=== PATIENT | female | born 1980 | race Hispanic/Latino ===

== ENCOUNTER 2017-07-19 07:37 | Emergency (ER) | payer SELFPAY ==
[2017-07-19 08:08] LABS: #Basophils 0.1 thou/uL (0.0-0.2); #Lymphocytes 1.7 thou/uL (1.20-3.40); #Monocytes 0.5 thou/uL (0.11-0.59); #Neutrophils 3.1 thou/uL (1.40-6.50); %Basophils 1.2 % (0.0-1.0); %Eosinophils 0.5 % (0.0-10.0); %Monocytes 9.1 % (0.0-10.0); Hematocrit 35.5 % (36.0-47.0); Mean Platelet Volume 7.6 fL (7.4-10.4); Red Blood Cell (RBC) Count 4.47 mill/uL (4.20-5.40); White Blood Cell (WBC) Count 5.4 thou/uL (4.8-10.8)
[2017-07-19 08:26] LABS: Anion Gap 8 mmol/L (10-20); BUN (Urea Nitrogen) 8 mg/dL (7.0-18.7); Calc. Creatinine Clearance 0 mL/min (70-130); Calcium 9.2 mg/dL (7.8-10.44); Carbon Dioxide 25 mmol/L (22-29); Chloride 107 mmol/L (98-107); Estimated GFR-MDRD Greater than 90
== END 2017-07-19 09:17 | disposition home or self-care (01) ==
LOC: ERS 07:37
DX: M79.641 Pain in right hand (principal); M79.671 Pain in right foot
CPT/HCPCS: 36415; 80048; 85025; 99283

== ENCOUNTER 2018-05-29 14:26 | Emergency (ER) | payer SELFPAY ==
[~2018-05-29 14:26] MED LIST: ISOVUE-370 76%-LOCM 1 ML ONE
[2018-05-29 15:20] LABS: #Basophils 0.1 thou/uL (0.0-0.2); #Eosinphils 0.1 thou/uL (0.0-0.7); #Lymphocytes 2.4 thou/uL (1.20-3.40); #Monocytes 0.5 thou/uL (0.11-0.59); #Neutrophils 5.7 thou/uL (1.40-6.50); %Basophils 0.8 % (0.0-1.0); %Eosinophils 0.7 % (0.0-10.0); %Lymphocytes 27.3 % (21.0-51.0); %Monocytes 5.3 % (0.0-10.0); %Neutrophils 65.9 % (42.0-75.0); Hemoglobin 12.5 g/dL (12.0-16.0); Mean Corpuscular HGB CONC 34.8 g/dL (32.0-36.0); Mean Corpuscular Hemoglobin 29.9 pg (27.0-31.0); Mean Corpuscular Volume 85.9 fL (78.0-98.0); Mean Platelet Volume 7.2 fL (7.4-10.4); Platelet Count 258 thou/uL (130-400); RBC Distribution Width 12.5 % (11.5-14.5); Red Blood Cell (RBC) Count 4.18 mill/uL (4.20-5.40); White Blood Cell (WBC) Count 8.7 thou/uL (4.8-10.8)
[2018-05-29 15:32] LABS: BHCG - Serum Negative (NEGATIVE); Pregs Control Background? CLEAR/WHITE (CLR/WHITE); Pregs Control Bar Appear? YES (CONTROL BAR)
[2018-05-29 15:37] LABS: ALT (SGPT) 15 U/L (8-55); AST (SGOT) 15 U/L (5-34); Albumin 3.9 g/dL (3.5-5.0); Alkaline Phosphatase 91 U/L (40-150); Anion Gap 11 mmol/L (10-20); BUN (Urea Nitrogen) 11 mg/dL (7.0-18.7); Bilirubin, Total 0.4 mg/dL (0.2-1.2); Calc. Creatinine Clearance 0 mL/min (70-130); Calcium 8.9 mg/dL (7.8-10.44); Carbon Dioxide 25 mmol/L (22-29); Chloride 104 mmol/L (98-107); Estimated GFR-MDRD 83; Globulin 4.1 g/dL (2.4-3.5); Glucose 96 mg/dL (70-105); Potassium 4.1 mmol/L (3.5-5.1); Sodium 136 mmol/L (136-145)
[2018-05-29 15:40] LABS: Bilirubin Negative (Negative); Blood, Urine Small (Negative); Clarity CLEAR (Clear); Glucose, Urine (Dipstick) Negative (Negative); Leukocyte Negative (Negative); Nitrite Negative (Negative); Protein, Urine (Dipstick) Negative (Neg-Trace); Specific Gravity, Urine 1.022 (1.002-1.036)
[2018-05-29 15:47] LABS: Bacteria/HPF 1+ HPF (None Seen); Hyaline Casts/LPF 0-3 HYALINE CAST LPF (0-3 Hyaline); Pathc Cast-AUWi Flag 0.29 (0-2.49)
--- NOTE | 2018-05-29 15:53 | ULT ---
PELVIC ULTRASOUND INCLUDING TRANSABDOMINAL AND TRANSVAGINAL IMAGING: HISTORY: A 38-year-old female with lower abdominal and pelvic pain. FINDINGS: The uterus measures 11 cm in length and 4.4 x 4.8 cm transversely. Endometrium 1.3 cm. Right ovary not seen. Left ovary not seen. There are some nabothian cysts within the cervix. IMPRESSION: Overall unremarkable uterus, endometrium is slightly thickened at 1.3 cm. Incidental nabothian cyst. Nonvisualized right and left ovaries. No abnormal fluid collection. POS: [facility]
[2018-05-29 16:08] LABS: RBC/HPF 0-3 HPF (0-3)
--- NOTE | 2018-05-29 17:48 | CT ---
CT ABDOMEN AND PELVIS: Date: 05-29-18 Provided Clinical History: Abdominal pain. Comparison: 12-15-14 FINDINGS: The visualized lung bases are clear of significant opacity. The liver, spleen, pancreas, kidneys, and adrenal glands demonstrate an unremarkable CT appearance. There is no bowel dilatation, inflammatory fat stranding, free fluid, or lymph node enlargement. The appendix appears normal. There is no evide nce for pneumoperitoneum. The osseous structures demonstrate no concerning lytic or blastic lesions. IMPRESSION: No evidence for an acute process. POS: [facility]
== END 2018-05-29 19:13 | disposition home or self-care (01) ==
LOC: ERS 14:26
DX: R10.30 Lower abdominal pain, unspecified (principal)
CPT/HCPCS: 36415; 74177; 76856; 80053; 81003; 81015; 84703; 85025

== ENCOUNTER 2018-06-15 10:41 | Emergency (ER) | payer SELFPAY ==
--- NOTE | 2018-06-15 12:31 | RAD ---
CHEST PA AND LATERAL: History: 38-year-old female with history of cough with vomiting, congestion, and runny nose. Body aches and so re throat. Comparison: 05-04-17 FINDINGS: Heart size is normal. The lungs are clear. No pneumonia, edema, pleural effusion, or other acute proc ess. IMPRESSION: No acute intrathoracic disease. POS: [facility]
== END 2018-06-15 13:21 | disposition home or self-care (01) ==
LOC: ERS 10:41
DX: J06.9 Acute upper respiratory infection, unspecified (principal)
CPT/HCPCS: 71046; 87081; 87430; 87804

== ENCOUNTER 2018-07-26 07:16 | Emergency (ER) | payer SELFPAY ==
[2018-07-26 07:55] LABS: Bilirubin Negative (Negative); Blood, Urine Moderate (Negative); Clarity CLEAR (Clear); Glucose, Urine (Dipstick) Negative (Negative); Leukocyte Small (Negative); Nitrite Negative (Negative); Protein, Urine (Dipstick) Negative (Neg-Trace); Specific Gravity, Urine 1.019 (1.002-1.036); Urobilinogen 0.2 mg/dL (0.2-1.0)
[2018-07-26 07:58] LABS: Bacteria/HPF None Seen HPF (None Seen); Hyaline Casts/LPF 0-3 HYALINE CAST LPF (0-3 Hyaline); Pathc Cast-AUWi Flag 0.29 (0-2.49); RBC/HPF 21-50 HPF (0-3); Squamous Epithelial 0-3 HPF (0-3); WBC/HPF 0-3 HPF (0-3)
[2018-07-26 08:00] LABS: #Eosinphils 0.1 thou/uL (0.0-0.7); #Monocytes 0.4 thou/uL (0.11-0.59); #Neutrophils 4.7 thou/uL (1.40-6.50); %Basophils 0.6 % (0.0-1.0); %Eosinophils 1.3 % (0.0-10.0); %Monocytes 5.4 % (0.0-10.0); %Neutrophils 64.7 % (42.0-75.0); Hemoglobin 12.7 g/dL (12.0-16.0); Mean Corpuscular HGB CONC 32.2 g/dL (32.0-36.0); Mean Corpuscular Hemoglobin 27.7 pg (27.0-31.0); Mean Corpuscular Volume 85.9 fL (78.0-98.0); Mean Platelet Volume 7.4 fL (7.4-10.4); Platelet Count 291 thou/uL (130-400); Red Blood Cell (RBC) Count 4.58 mill/uL (4.20-5.40); White Blood Cell (WBC) Count 7.3 thou/uL (4.8-10.8)
[2018-07-26 08:04] LABS: Pregnancy Test - Urine (BHCG) Negative (Negative); Pregu Control Background? CLEAR/WHITE (CLR/WHITE); Pregu Control Bar Appear? YES (CONTROL BAR); Specific Gravity 1.019 (1.002-1.036)
[2018-07-26 08:26] LABS: ALT (SGPT) 14 U/L (8-55); AST (SGOT) 13 U/L (5-34); Alkaline Phosphatase 71 U/L (40-150); Anion Gap 9 mmol/L (10-20); BUN (Urea Nitrogen) 11 mg/dL (7.0-18.7); Bilirubin, Total 0.3 mg/dL (0.2-1.2); Calc. Creatinine Clearance 0 mL/min (70-130); Carbon Dioxide 24 mmol/L (22-29); Chloride 106 mmol/L (98-107); Estimated GFR-MDRD Greater than 90; Globulin 3.7 g/dL (2.4-3.5); Glucose 99 mg/dL (70-105); Lipase 22 U/L (8-78); Potassium 4.2 mmol/L (3.5-5.1); Protein, Total 7.7 g/dL (6.0-8.3); Sodium 135 mmol/L (136-145)
[2018-07-26] MEDS ORDERED: Acetaminophen 325 MG TAB ONE (08:27)
[2018-07-26] MEDS ORDERED: Morphine 4 MG/ML VIAL ONE (08:46)
--- NOTE | 2018-07-26 09:23 | CT ---
NONCONTRAST CT ABDOMEN AND PELVIS: Date: 07-26-18 History: Left lower quadrant abdominal pain. Comparison: 09-27-13 FINDINGS: Minimal atelectasis is present at each lung base. Lung bases are otherwise clear. Calcified granuloma is again seen in the spleen. The liver, pancreas, bilateral adrenal glands, kidneys, urinary bladder, uterus and adnexal structure s demonstrate a grossly normal nonenhanced CT appearance. No renal or ureteral calculi are seen bilat erally. The appendix is visualized and normal in caliber. There has been no interval change compared to the prior noncontrasted CT exam. IMPRESSION: 1. No renal or ureteral calculi are seen bilaterally. There is no hydronephrosis. 2. No CT evidence of appendicitis. POS: [facility]
== END 2018-07-26 11:00 | disposition home or self-care (01) ==
LOC: ERS 07:16
DX: N39.0 Urinary tract infection, site not specified (principal); R10.32 Left lower quadrant pain
CPT/HCPCS: 36415; 74176; 80053; 81003; 81015; 81025; 83690; 85025; 87086; 96374; J2270

== ENCOUNTER 2018-07-29 07:43 | Emergency (ER) | payer MEDICAID | END 2018-07-29 08:33 | disposition home or self-care (01) | LOC: ERS 07:43 | DX: R11.10 Vomiting, unspecified (principal); Z79.899 Other long term (current) drug therapy | CPT/HCPCS: 99283 ==

== ENCOUNTER 2018-08-04 06:35 | Outpatient (CLI) | payer MEDICAID ==
--- NOTE | 2018-08-04 08:00 | ULT ---
PELVIC SONOGRAM TRANSABDOMINAL IMAGING WITH DUPLEX EVALUATION: Date: 08/04/18 HISTORY: Pelvic pain. FINDINGS: Urinary bladder is decompressed. Uterus has a heterogeneous echotexture and is 10.0 cm. Endometrium i s 1.1 cm. No free fluid. Right ovary is 3.6 cm and left is 4.2 cm. Each contains small follicles and demonstrates good color a nd spectral Doppler flow. IMPRESSION: Normal pelvic sonogram. POS: [facility]
--- NOTE | 2018-08-04 08:08 | ULT ---
SONOGRAM ABDOMEN COMPLETE: Date: 08/04/18 HISTORY: Abdominal pain. FINDINGS: Gallbladder has a normal appearance without evidence of stones. Small fold is noted near the posterio r aspect of the gallbladder neck. Common duct is mildly distended at 0.8 cm. It has been prominent on multiple previous exams. Liver is unremarkable without focal mass or intrahepatic biliary dilatation . No free fluid. The spleen, kidneys, and visualized portions of the abdominal aorta, IVC, and pancre as are unremarkable. IMPRESSION: 1. Prominence of the common bile duct has been noted on prior sonograms. CT abdomen performed shows the duct to not be dilated with no evidence of an obstructing lesions. 2. No significant abnormalities are apparent. POS: [facility]
== END 2018-08-04 06:36 | disposition home or self-care (01) ==
LOC: BICULT 06:35
DX: R10.32 Left lower quadrant pain (principal)
CPT/HCPCS: 76700; 76856; 93976

== ENCOUNTER 2018-11-10 00:51 | Outpatient (CLI) | payer MEDICAID ==
[2018-11-10 17:07] LABS: Hemoglobin 13.7 g/dL (12.0-16.0); Mean Corpuscular HGB CONC 33.7 g/dL (32.0-36.0); Mean Corpuscular Hemoglobin 28.9 pg (27.0-31.0); Mean Corpuscular Volume 85.6 fL (78.0-98.0); Mean Platelet Volume 8.1 fL (7.4-10.4); Platelet Count 288 thou/uL (130-400); RBC Distribution Width 12.5 % (11.5-14.5); Red Blood Cell (RBC) Count 4.73 mill/uL (4.20-5.40); White Blood Cell (WBC) Count 9.1 thou/uL (4.8-10.8)
[2018-11-10 17:18] LABS: BHCG - Serum Negative (NEGATIVE); Pregs Control Background? CLEAR/WHITE (CLR/WHITE); Pregs Control Bar Appear? YES (CONTROL BAR)
== END 2018-11-10 00:52 | disposition home or self-care (01) ==
LOC: LABBT 00:51
PROVIDERS: ATTEND Obstetrics & Gynecology
DX: Z01.812 Encounter for preprocedural laboratory examination (principal); N92.0 Excessive and frequent menstruation with regular cycle; N94.6 Dysmenorrhea, unspecified
CPT/HCPCS: 84703; 85027; 86850; 86900; 86901

== ENCOUNTER 2018-11-16 08:43 | Observation (INO) | payer MEDICAID ==
[2018-11-10 15:34] VITALS: BMI 44.2
--- NOTE | 2018-11-16 07:15 | HP ---
REASON FOR ADMISSION: Dysmenorrhea, menorrhagia, and adenomyosis. SCHEDULED PROCEDURE: Total laparoscopic hysterectomy with bilateral salpingectomy. HISTORY OF PRESENT ILLNESS: Ms. Jorge is a 38-year-old, 3, para 3, x3, negative Pap smear, who was referred to me for menorrhagia and dysmenorrhea, unresponsive to medical management. Ultrasound is consistent with adenomyosis. The patient desires definitive surgical management. [employer] OPERATOR HISTORY: As noted in the HPI. No history of dysplasia or STDs. Menorrhagia. SURGICAL HISTORY: None. MEDICAL HISTORY: None. ALLERGIES: DENIES. MEDICATIONS: 1. Depo-Provera. 2. Omeprazole. 3. Bentyl. SOCIAL HISTORY: Denies tobacco, alcohol, or drug use. FAMILY HISTORY: Noncontributory. REVIEW OF SYSTEMS: Noncontributory. PHYSICAL EXAMINATION: GENERAL: female. VITAL SIGNS: Height 5 feet and 6 inches, weight 264 pounds, BMI of 42.6. Blood pressure 120/76, pulse 80, respirations 18. HEENT: Within normal limits. LUNGS: Clear to auscultation bilaterally. HEART: Regular rhythm. BREASTS: No masses bilaterally. ABDOMEN: Soft, nontender. No rebound or guarding. PELVIS: Vulva without lesions. Vagina without discharge. Cervix, parous. Uterus anteverted, boggy, slightly enlarged, mobile. Adnexa, no masses. EXTREMITIES: No clubbing, cyanosis, or edema. IMPRESSION: Dysmenorrhea, menorrhagia. Ultrasound consistent with adenomyosis, unresponsive to medical management. PLAN: Discussed with the patient options including endometrial ablation, Mirena IUD, and hysterectomy. The patient desires to proceed with hysterectomy and prophylactic salpingectomy. We will perform aforementioned surgery with da Samantha robot assist and appropriate DVT and antibiotic prophylaxis on 11/16/2018 at [facility]. Job ID: [id number]
[2018-11-16] MEDS ORDERED: Gabapentin 300 MG CAP ONE (09:47)
[2018-11-16] MEDS ORDERED: CeleCOXIB 100 MG CAP ONE (09:47)
[2018-11-16] MEDS ORDERED: Famotidine/PF 20 mg/2ml Vial ONE (09:47)
[2018-11-16] MEDS ORDERED: Fentanyl 100 MCG/2 ML VIAL ONE ×3 (11:14→14:05)
[2018-11-16] MEDS ORDERED: Bupivacaine HCl 0.5%/Epinephrine 1:200,000/PF 30 ml Vial ONE (11:16)
[2018-11-16] MEDS ORDERED: Ketorolac Tromethamine 30 MG/ML VIAL ONE (11:41)
[2018-11-16] MEDS ORDERED: Dexamethasone 20 MG/5 ML VIAL ONE (11:41)
[2018-11-16] MEDS ORDERED: Ondansetron PF 4 MG/2 ML Vial ONE (11:41)
[2018-11-16] MEDS ORDERED: Lidocaine 1% PF 5 ML VIAL ONE (11:41)
[2018-11-16] MEDS ORDERED: Rocuronium Bromide 10 MG/ML (10ML VIAL) ONE (11:41)
[2018-11-16] MEDS ORDERED: Glycopyrrolate 0.2 MG/ML 5 ML SYRINGE ONE (11:41)
[2018-11-16] MEDS ORDERED: PROPOFOL 200 MG/20 ML VIAL ONE (11:41)
[2018-11-16] MEDS ORDERED: Promethazine HCl 25 MG/ML VIAL IM PRN ×2 (13:32→15:25)
[2018-11-16] MEDS ORDERED: Ondansetron HCl/PF 4 MG/2 ML Vial IVP PRN (13:32)
[2018-11-16] MEDS ORDERED: Promethazine HCl 25 MG/ML VIAL SLOW IVP PRN (13:32)
[2018-11-16] MEDS ORDERED: Promethazine HCl 25 MG/ML VIAL ONE (13:34)
[2018-11-16] MEDS ORDERED: Zolpidem Tartrate 5 MG TAB PO PRN (15:25)
[2018-11-16] MEDS ORDERED: Morphine 4 MG/ML VIAL SLOW IVP PRN ×2 (15:25)
[2018-11-16] MEDS ORDERED: HYDROcodone/Acetaminophen 10/325 mg Tablet PO PRN (15:25)
[2018-11-16] MEDS ORDERED: Ondansetron PF 4 MG/2 ML Vial IVP PRN (15:25)
[2018-11-16] MEDS ORDERED: diphenhydrAMINE 25 MG CAP PO PRN (15:25)
[2018-11-16] MEDS: Lactated Ringer's 1,000 ML IV SCH ×2 (16:13→18:47)
[2018-11-16] MEDS: Acetaminophen 1,000 MG in Premix Bag 1 BAG IVPB SCH ×2 (17:23→23:17)
[2018-11-16] MEDS: HYDROcodone/Acetaminophen 10/325 mg Tablet PO PRN (18:47)
[2018-11-16] MEDS: Simethicone Chewable 80 MG TAB PO PRN (18:47)
--- NOTE | 2018-11-16 19:44 | OP ---
DATE OF PROCEDURE: 11/16/2018 PREOPERATIVE DIAGNOSIS: Suspected adenomyosis with menorrhagia. POSTOPERATIVE DIAGNOSIS: Suspected adenomyosis with menorrhagia. PROCEDURE PERFORMED: Total laparoscopic hysterectomy with bilateral salpingectomy. ASSISTANTS: 1. Abdoul Mccloud DO, MS. 2. Brenda Dean PA-C. ANESTHESIA: General endotracheal. ESTIMATED BLOOD LOSS: Less than 50 mL. MEDICATIONS: 2 g Ancef. PREINCISION: DVT prophylaxis with SCDs. DRAINS: Wells to gravity with clear urine. OPERATIVE FINDINGS: 1. Approximately 8 to 10 week size uterus with appearance consistent with adenomyosis. 2. Status post bilateral tubal interruption with Falope rings. 3. Normal-appearing ovaries bilaterally. 4. Hemostasis, clear urine. COUNTS: Correct at the end of the procedure. DISPOSITION: Recovery room in good condition. DESCRIPTION OF PROCEDURE: After obtaining appropriate informed consent, the patient was taken to the operating room, where general endotracheal anesthesia was achieved without difficulty. The patient was prepped and draped in the dorsal lithotomy position in Jovi stirrups. A weighted speculum was placed in the vagina. Cervix was identified, grasped with single-tooth tenaculum at 12 o'clock, sounded to 8 cm. IZZY manipulator with 4 cm vaginal obturator and an 8 cm uterine obturator were placed without difficulty. Wells catheter was placed. Speculum and tenaculum were removed, and finish off operator changed his clothes and turned attention to abdominal portion of procedure. 5 mL of Marcaine was injected into the base of umbilicus and a 12 mm skin incision was made. Veress needle was placed inside the abdominal cavity and insufflation was carried out with carbon dioxide for a maximum pressure of approximately 15 with volume of approximately 3.5 L of carbon dioxide. Once this pressure was achieved, a 12 mm non-cutting trocar was introduced in the abdominal cavity. Confirmation of entry into the peritoneal cavity without trauma to the underlying viscera was noted. The patient was placed in steep Trendelenburg position. The right and left lateral da Samantha robot ports were placed under direct visualization as well as an 11 mm assistant professor of theater port in the right upper quadrant. Da Samantha robot was docked with monopolar scissors in the right hand and bipolar fenestrated forceps in the left. Fallopian tube was excised along with the Falope ring on the left. Coagulation and transection were then carried out through the utero-ovarian ligament, broad, the round, and down to the level of the internal cervical os. The vesicouterine peritoneum was identified, incised sharply, and dissected off lower uterine segment, cervix, and upper vagina. Skeletonization of the uterine vessels on the left was carried out. There were noted to be quite torturous and redundant that were coagulated and then transected and noted to be hemostatic. Attention was turned to the right with identical procedure was carried out. Again once reaching the level of internal cervical os, further dissection and incision of the vesicouterine peritoneum was taken along the cervix and upper vagina. The bladder was dissected off below the level of the IZZY vaginal obturator. Skeletonization of the uterine vessels on the right was carried out and coagulated and transected. Posteriorly, the vagina was entered at 6 o'clock and extended from 6 to 3 and 6 to 9. Anteriorly, was taken from 12 o'clock and from 12 to 9 and 12 to 3 amputating the specimen and pulling it into the vagina to maintain pneumoperitoneum. Suction and irrigation were carried out and hemostasis was rendered along the vaginal cuff. The bladder was inflated to assure its location and it was noted to be well away from the vaginal cuff. The cuff was closed using a running continuous 2-0 PDS suture lock running from right to left and then secondary layer closure from left to right. Inspection of all pedicles was carried out and good hemostasis was noted. Tisseel was placed across all surgical pedicles. The Da Samantha instruments were removed. The robot was undocked and the trocars were removed. The abdomen was desufflated of carbon dioxide. The fascia at the umbilicus was closed using a 0 Vicryl on a UR5 needle and skin was reapproximated x4 using 4-0 Monocryl and Dermabond. The vagina was inspected, noted to be without laceration. Clear urine was noted. The patient was awakened and extubated to recovery room in good condition. Job ID: [id number]
[2018-11-16] MEDS: Gabapentin 300 MG CAP PO SCH (21:12)
[2018-11-16] MEDS: CeleCOXIB 100 MG CAP PO SCH (21:12)
[2018-11-17] MEDS: HYDROcodone/Acetaminophen 10/325 mg Tablet PO PRN ×2 (03:45→07:58)
[2018-11-17 06:05] LABS: Hemoglobin 12.8 g/dL (12.0-16.0); Mean Corpuscular Hemoglobin 28.6 pg (27.0-31.0); Mean Corpuscular Volume 86.9 fL (78.0-98.0); Mean Platelet Volume 7.4 fL (7.4-10.4); Platelet Count 288 thou/uL (130-400); RBC Distribution Width 12.5 % (11.5-14.5); Red Blood Cell (RBC) Count 4.46 mill/uL (4.20-5.40)
[2018-11-17] MEDS: Acetaminophen 1,000 MG in Premix Bag 1 BAG IVPB SCH ×2 (07:30→12:58)
[2018-11-17] MEDS: Lactated Ringer's 1,000 ML IV SCH (07:30)
[2018-11-17] MEDS: Gabapentin 300 MG CAP PO SCH (07:59)
[2018-11-17] MEDS: Simethicone Chewable 80 MG TAB PO PRN (07:59)
[2018-11-17] MEDS: CeleCOXIB 100 MG CAP PO SCH (07:59)
--- NOTE | 2018-11-17 08:47 | PRG ---
DATE OF SERVICE: 11/17/2018 TIME OF SERVICE: 0830 hours. SUBJECTIVE: Ms. Barrera is resting well, eating breakfast. She complains of right leg pain just below the knee. She is able to move. She denies shortness of breath. She denies abdominal pain. OBJECTIVE: VITAL SIGNS: Urine output is greater than 1600 mL. Postoperatively, voiding with ease. Clear urine. Temperature 98.2, pulse 89, respirations 20, blood pressure 119/71, and T-max postoperatively 98.4. LUNGS: Clear to auscultation bilaterally. HEART: Regular rate and rhythm. ABDOMEN: Soft and nontender with bowel sounds through all 4 quadrants. Incisions are intact and dry. Perineum is dry. EXTREMITIES: No appreciable difference in the size of right and left lower extremity is noted. No Homans' sign is noted. The area just below the knee is cold and slightly erythematous as she has had an ice pack applied to it. LABORATORY DATA: Hematocrit is 38.8% with a 12.0 white count this morning. IMPRESSION: 1. On postoperative day #1, status post da Samantha robot total laparoscopic hysterectomy with bilateral salpingectomy. 2. Right leg pain. Doubt neuropathy or deep vein thrombosis, but cannot rule out deep vein thrombosis with the patient's obesity on exam. Suspect the pain is just due to slight compression with positioning in Jovi stirrups secondary to the patient's morbid obesity. PLAN: We will obtain bilateral lower extremity Dopplers to rule out DVT. Follow up those results and anticipate probable p.m. discharge. Job ID: [id number]
--- NOTE | 2018-11-17 10:54 | ULT ---
ULTRASOUND WITH DOPPLER DUPLEX VENOUS LOWER EXTREMITY BILATERAL CPT: 39473 ICD-10-PCS: B54D HISTORY: Pain of right lower extremity, postoperative patient. TECHNIQUE: Color flow Doppler, spectral waveform analysis of pulsed Doppler, and suárez-scale imaging with lien [place] and augmentation, were used to evaluate the bilateral common femoral, femoral, popliteal, pillar man ior tibial, and superficial femoral, veins; and the proximal portions of the profunda femoral and gre ater saphenous, veins. FINDINGS: There is appropriate compressibility and flow within the imaged deep vein systems of each lower extre mity. There is a component of limited acoustic penetration due to patient body habitus which does de crease sensitivity of the evaluation. IMPRESSION: No deep vein thrombosis is visualized within the imaged bilateral lower extremities. POS: [facility]
[2018-11-17 11:30] VITALS: BP 134/70; TEMP 97.8
--- NOTE | 2018-11-18 10:36 | DIS ---
DATE OF ADMISSION: 11/16/2018 DATE OF DISCHARGE: 11/17/2018 SUMMARY OF HOSPITAL COURSE: The patient underwent TLH with bilateral salpingectomy for adenomyosis. Postoperative course was complicated by complaint of leg pain. Venous Doppler revealed no evidence of DVT. The patient was ambulating well, voiding well, and was discharged home approximately 24 hours postoperatively. She will be followed up at [facility] in 6 weeks. DISCHARGE MEDICATIONS: Include: 1. Sasabe. 2. Ibuprofen. Job ID: [id number]
== END 2018-11-17 15:00 | disposition home or self-care (01) ==
LOC: SDC 08:43 → 3SE 15:22 → INTOOBSV 15:22
PROVIDERS: ADMIT Obstetrics & Gynecology; ATTEND Obstetrics & Gynecology
PROC: 0UT94ZZ Resection of Uterus, Percutaneous Endoscopic Approach (ICD-10-PCS; principal; 2018-11-16)
PROC: 0UT74ZZ Resection of Bilateral Fallopian Tubes, Percutaneous Endoscopic Approach (ICD-10-PCS; 2018-11-16)
DX: D25.9 Leiomyoma of uterus, unspecified (principal); N72 Inflammatory disease of cervix uteri; N83.8 Other noninflammatory disorders of ovary, fallopian tube and broad ligament
CPT/HCPCS: 36415; 85027; 88307; 93970; 96361; 96374; 96375; 96376; G0378; J0131; J0670; J1100; J1885; J2001; J2270; J2405; J2550; J2704; J3010; S0028

== ENCOUNTER 2019-03-24 14:01 | Emergency (ER) | payer MEDICAID, SELFPAY ==
[2019-03-24 14:21] LABS: #Basophils 0.1 thou/uL (0.0-0.2); #Eosinphils 0.1 thou/uL (0.0-0.7); #Lymphocytes 2.9 thou/uL (1.20-3.40); #Monocytes 0.6 thou/uL (0.11-0.59); %Basophils 0.6 % (0.0-1.0); %Eosinophils 0.6 % (0.0-10.0); %Lymphocytes 29.9 % (21.0-51.0); %Monocytes 6.3 % (0.0-10.0); %Neutrophils 62.6 % (42.0-75.0); Hemoglobin 13.9 g/dL (12.0-16.0); Mean Corpuscular HGB CONC 34.3 g/dL (32.0-36.0); Mean Corpuscular Hemoglobin 29.1 pg (27.0-31.0); Mean Corpuscular Volume 84.7 fL (78.0-98.0); Mean Platelet Volume 7.6 fL (7.4-10.4); Platelet Count 293 thou/uL (130-400); RBC Distribution Width 12.2 % (11.5-14.5); Red Blood Cell (RBC) Count 4.78 mill/uL (4.20-5.40); White Blood Cell (WBC) Count 9.5 thou/uL (4.8-10.8)
[2019-03-24 14:32] LABS: Bacteria/HPF 1+ HPF (None Seen); Bilirubin Negative (Negative); Blood, Urine 2+ (Negative); Clarity Clear (Clear); Glucose, Urine (Dipstick) Normal (Negative); Leukocyte Negative Leu/uL (Negative); Nitrite Negative (Negative); Protein, Urine (Dipstick) Negative (Neg-Trace); WBC/HPF 0-3 HPF (0-3)
[2019-03-24 14:35] LABS: Pregnancy Test - Urine (BHCG) Negative (Negative); Pregu Control Background? CLEAR/WHITE (CLR/WHITE); Pregu Control Bar Appear? YES (CONTROL BAR); Specific Gravity 1.026 (1.002-1.036)
[2019-03-24 14:44] LABS: ALT (SGPT) 21 U/L (8-55); AST (SGOT) 15 U/L (5-34); Albumin 4.1 g/dL (3.5-5.0); Alkaline Phosphatase 86 U/L (40-150); Anion Gap 13 mmol/L (10-20); BUN (Urea Nitrogen) 13 mg/dL (7.0-18.7); Bilirubin, Total 0.3 mg/dL (0.2-1.2); Calc. Creatinine Clearance 0 mL/min (70-130); Calcium 9.5 mg/dL (7.8-10.44); Carbon Dioxide 23 mmol/L (22-29); Chloride 103 mmol/L (98-107); Estimated GFR-MDRD 82; Globulin 4.2 g/dL (2.4-3.5); Glucose 101 mg/dL (70-105); Lipase 34 U/L (8-78); Potassium 3.8 mmol/L (3.5-5.1); Protein, Total 8.3 g/dL (6.0-8.3); Sodium 135 mmol/L (136-145)
== END 2019-03-24 15:06 | disposition home or self-care (01) ==
LOC: ERS 14:01
DX: R11.2 Nausea with vomiting, unspecified (principal); R19.7 Diarrhea, unspecified; R10.9 Unspecified abdominal pain
CPT/HCPCS: 36415; 80053; 81003; 81025; 83690; 85025; 99284

== ENCOUNTER 2019-06-21 07:33 | Emergency (ER) | payer SELFPAY ==
[2019-06-21 07:55] LABS: Bilirubin Negative (Negative); Blood, Urine 1+ (Negative); Clarity Clear (Clear); Glucose, Urine (Dipstick) Normal (Negative); Leukocyte Negative Leu/uL (Negative); Mucous/LPF Rare LPF (<2+); Nitrite Negative (Negative); Protein, Urine (Dipstick) 10 mg/dL (Neg-Trace); Urobilinogen Normal mg/dL (Less than 2); WBC/HPF 0-3 HPF (0-3)
[2019-06-21 07:56] LABS: Bacteria/HPF 1+ HPF (None Seen)
[2019-06-21 08:52] LABS: #Lymphocytes 1.2 thou/uL (1.20-3.40); #Monocytes 0.4 thou/uL (0.11-0.59); #Neutrophils 6.5 thou/uL (1.40-6.50); %Basophils 0.2 % (0.0-1.0); %Eosinophils 0.2 % (0.0-10.0); %Lymphocytes 14.6 % (21.0-51.0); %Monocytes 4.6 % (0.0-10.0); %Neutrophils 80.5 % (42.0-75.0); Hemoglobin 13.8 g/dL (12.0-16.0); Mean Corpuscular HGB CONC 35.3 g/dL (32.0-36.0); Mean Corpuscular Hemoglobin 29.7 pg (27.0-31.0); Mean Corpuscular Volume 84.2 fL (78.0-98.0); Mean Platelet Volume 7.2 fL (7.4-10.4); Platelet Count 269 thou/uL (130-400); RBC Distribution Width 12.2 % (11.5-14.5); Red Blood Cell (RBC) Count 4.65 mill/uL (4.20-5.40)
[2019-06-21 09:11] LABS: ALT (SGPT) 19 U/L (8-55); AST (SGOT) 18 U/L (5-34); Albumin 4.1 g/dL (3.5-5.0); Alkaline Phosphatase 92 U/L (40-110); Anion Gap 11 mmol/L (10-20); BUN (Urea Nitrogen) 11 mg/dL (7.0-18.7); Bilirubin, Total 0.8 mg/dL (0.2-1.2); Calc. Creatinine Clearance 0 mL/min (70-130); Calcium 8.5 mg/dL (7.8-10.44); Carbon Dioxide 25 mmol/L (22-29); Chloride 104 mmol/L (98-107); Estimated GFR-MDRD 86; Globulin 3.8 g/dL (2.4-3.5); Glucose 102 mg/dL (70-105); Lipase 17 U/L (8-78); Potassium 4.2 mmol/L (3.5-5.1); Protein, Total 7.9 g/dL (6.0-8.3); Sodium 136 mmol/L (136-145)
[2019-06-21] MEDS ORDERED: Ketorolac Tromethamine 30 MG/ML VIAL ONE (10:32)
[2019-06-21] MEDS ORDERED: Ondansetron PF 4 MG/2 ML Vial ONE (10:32)
== END 2019-06-21 12:09 | disposition home or self-care (01) ==
LOC: ERS 07:33
DX: E86.0 Dehydration (principal)
CPT/HCPCS: 36415; 80053; 81003; 81015; 83690; 85025; 96361; 96374; 96375; J1885; J2405

== ENCOUNTER 2019-08-04 12:35 | Outpatient (CLI) | payer MEDICAID ==
--- NOTE | 2019-08-04 17:10 | MMO ---
Bilateral MAMMO Bilat Screen DDI. CLINICAL HISTORY: Patient is 39 years old and is seen for screening. The patient has no family history of breast cancer. The patient has no personal history of cancer. VIEWS: The views performed were: bilateral craniocaudal and bilateral mediolateral oblique. This study has been interpreted with the assistance of computer-aided detection. MAMMOGRAM FINDINGS: The breasts are heterogeneously dense, which could obscure a lesion on mammography. There are no suspicious masses, suspicious calcifications, or new areas of architectural distortion. IMPRESSION: THERE IS NO MAMMOGRAPHIC EVIDENCE OF MALIGNANCY. A ROUTINE FOLLOW-UP MAMMOGRAM IN 1 YEAR IS RECOMMENDED. ACR BI-RADS Category 1 - Negative MAMMOGRAPHY NOTE: 1. A negative mammogram report should not delay a biopsy if a dominant of clinically suspicious mass is present. 2. Approximately 10% to 15% of breast cancers are not detected by mammography. 3. Adenosis and dense breasts may obscure an underlying neoplasm. Reported by: WILLIAM SALAZAR MD Electonically Signed: [id number]
== END 2019-08-04 12:36 | disposition home or self-care (01) ==
LOC: BICMAMMO 12:35
PROVIDERS: ATTEND Nurse Practitioner Family
DX: Z12.31 Encounter for screening mammogram for malignant neoplasm of breast (principal)
CPT/HCPCS: 77067

== ENCOUNTER 2019-10-05 11:46 | Emergency (ER) | payer MEDICAID ==
[2019-10-05] MEDS ORDERED: Ketorolac Tromethamine 60 MG/2 ML VIAL ONE (12:34)
== END 2019-10-05 13:16 | disposition home or self-care (01) ==
LOC: ERS 11:46
DX: S39.012A Strain of muscle, fascia and tendon of lower back, initial encounter (principal); X58.XXXA Exposure to other specified factors, initial encounter
CPT/HCPCS: 96372; 99283; J1885

== ENCOUNTER 2019-11-21 07:27 | Emergency (ER) | payer MEDICAID, OTHER | END 2019-11-21 08:13 | disposition home or self-care (01) | LOC: ERS 07:27 | DX: J06.9 Acute upper respiratory infection, unspecified (principal) | CPT/HCPCS: 99281 ==

== ENCOUNTER 2019-12-26 13:21 | Outpatient (CLI) | payer OTHER ==
--- NOTE | 2019-12-26 14:05 | CT ---
Exam: Abdomen CT without contrast Pelvic CT without contrast HISTORY: Left flank pain, x2 months. Worsening pain. COMPARISON: 07/26/2018 FINDINGS: Abdomen CT: Lung bases:Clear Heart size: Normal heart size. No significant pericardial fluid Aorta: Normal caliber Solid organs: Limited evaluation by the absence of IV contrast. Grossly no solid organ abnormality. Lymph nodes: No gastrohepatic, retrocrural or periportal lymphadenopathy. Stable nonspecific left upp er quadrant mesenteric lymph nodes. Gallbladder: No acute inflammatory change Mesentery: No mass, free air or free fluid Kidneys: Bilaterally, no hydronephrosis, nephrolithiasis or perinephric fat stranding. Bilateral uret ers have a normal caliber. No hydroureter, periureteral fat stranding or ureterolithiasis. Alimentary canal: Limited evaluation by the absence of oral contrast. Normal caliber small bowel loop s. Normal ileocecal junction. Scattered fecal material in a nondistended, nondilated colon. Diverticulosis, without evidence of diverticulitis. Normal caliber appendix. Stable nonspecific upper normal right lower quadrant mesenteric lymph node. CT PELVIS: No mass, adenopathy, free air or free fluid. Surgically absent uterus. No adnexal masses. Urinary bladder: Unremarkable. Osseous structures: No lytic or blastic lesions IMPRESSION: 1. No evidence of obstructive uropathy. 2. Scattered upper normal mesenteric lymph nodes in the left upper quadrant and right lower quadrant, unchanged. Correlate clinically for mesenteric lymphadenitis. 3. Normal caliber appendix.
== END 2019-12-26 13:22 | disposition home or self-care (01) ==
LOC: BICCT 13:21
PROVIDERS: ATTEND Family Medicine
DX: M54.89 Other dorsalgia (principal)
CPT/HCPCS: 74176

== ENCOUNTER 2020-10-25 07:32 | Outpatient (CLI) | payer OTHER ==
[2020-10-25] MEDS ORDERED: Magnevist 469MG/ML 20 ML VIAL ONE (10:29)
--- NOTE | 2020-10-25 10:45 | MRI ---
MRI BRAIN WITH AND WITHOUT CONTRAST: Date: 10/25/2020 INDICATION: Head. FINDINGS: The ventricles have normal size and position. No evidence of restricted diffusion. No mass or edema. There is nonspecific scattered white matter hyperintensity seen on FLAIR sequence, primarily in deep white matter of both frontal lobes. No abnormal enhancement. The intracranial internal carotid arteries, cerebral arteries, basilar artery, and dural venous sinus es appear patent. The paranasal sinuses and mastoids are clear. IMPRESSION: There are a few scattered tiny white matter hyperintensities seen in the frontal lobes bilaterally. T hese are nonspecific and can be seen with vascular headaches. These are more prominent than expected in a patient of this age, although they do not suggest pathologic white matter abnormality. Recommend follow-up MRI brain without contrast in 6 months to confirm stability of the white matter intensitie s. POS: [facility]
== END 2020-10-25 07:33 | disposition home or self-care (01) ==
LOC: BICMRI 07:32
PROVIDERS: ATTEND Student in an Organized Health Care Education/Training Program
DX: G44.201 Tension-type headache, unspecified, intractable (principal); R90.82 White matter disease, unspecified
CPT/HCPCS: 70553; A9579

== ENCOUNTER 2021-01-15 09:09 | Outpatient (CLI) | payer OTHER | END 2021-01-15 09:10 | disposition home or self-care (01) | LOC: BICMAMMO 09:09 | PROVIDERS: ATTEND Family Medicine | DX: Z12.31 Encounter for screening mammogram for malignant neoplasm of breast (principal) | CPT/HCPCS: 77067 ==

== ENCOUNTER 2021-04-11 15:24 | Emergency (ER) | payer OTHER ==
[2021-04-11] MEDS ORDERED: Ibuprofen 200 MG TAB ONE (17:04)
== END 2021-04-11 17:09 | disposition home or self-care (01) ==
LOC: ERS 15:24
DX: J06.9 Acute upper respiratory infection, unspecified (principal); H65.92 Unspecified nonsuppurative otitis media, left ear
CPT/HCPCS: 99283

== ENCOUNTER 2021-09-16 09:29 | Emergency (ER) | payer OTHER ==
[2021-09-16 19:38] LABS: SARS-CoV-2 PCR by NAA DETECTED (NotDetected)
== END 2021-09-16 10:26 | disposition home or self-care (01) ==
LOC: ERS 09:29
DX: U07.1 COVID-19 (principal)
CPT/HCPCS: 99284; U0003; U0005

== ENCOUNTER 2022-01-30 08:03 | Outpatient (CLI) | payer OTHER | END 2022-01-30 08:04 | disposition home or self-care (01) | LOC: BICMAMMO 08:03 | PROVIDERS: ATTEND Family Medicine | DX: Z12.31 Encounter for screening mammogram for malignant neoplasm of breast (principal) | CPT/HCPCS: 77067 ==

== ENCOUNTER 2022-04-18 10:32 | Emergency (ER) | payer OTHER ==
[2022-04-18] MEDS ORDERED: Ondansetron PF 4 MG/2 ML Vial ONE (11:18)
[2022-04-18] MEDS ORDERED: Ketorolac Tromethamine 30 MG/ML VIAL ONE (11:18)
[2022-04-18 11:25] LABS: #Lymphocytes 2.2 thou/uL (1.20-3.40); #Monocytes 0.5 thou/uL (0.11-0.59); #Neutrophils 5.4 thou/uL (1.40-6.50); %Basophils 0.6 % (0.0-1.0); %Eosinophils 0.4 % (0.0-10.0); %Lymphocytes 26.7 % (21.0-51.0); %Monocytes 6.1 % (0.0-10.0); %Neutrophils 66.1 % (42.0-75.0); Hemoglobin 12.7 g/dL (12.0-16.0); Mean Corpuscular HGB CONC 34.2 g/dL (32.0-36.0); Mean Corpuscular Hemoglobin 30.2 pg (27.0-31.0); Mean Corpuscular Volume 88.3 fL (78.0-98.0); Mean Platelet Volume 7.5 fL (7.4-10.4); Platelet Count 278 thou/uL (130-400); RBC Distribution Width 11.9 % (11.5-14.5); White Blood Cell (WBC) Count 8.2 thou/uL (4.8-10.8)
[2022-04-18 11:39] LABS: BHCG - Serum Negative (NEGATIVE)
[2022-04-18 11:40] LABS: Pregs Control Background? CLEAR/WHITE (CLR/WHITE); Pregs Control Bar Appear? YES (CONTROL BAR)
[2022-04-18 11:47] LABS: ALT (SGPT) 18 U/L (8-55); AST (SGOT) 17 U/L (5-34); Alkaline Phosphatase 81 U/L (40-110); Anion Gap 13 mmol/L (10-20); BUN (Urea Nitrogen) 12 mg/dL (7.0-18.7); Bilirubin, Total 0.5 mg/dL (0.2-1.2); Calc. Creatinine Clearance 0 mL/min (70-130); Carbon Dioxide 25 mmol/L (22-29); Chloride 103 mmol/L (98-107); Estimated GFR 108; Globulin 3.6 g/dL (2.4-3.5); Glucose 94 mg/dL (70-105); Lipase 18 U/L (8-78); Potassium 3.8 mmol/L (3.5-5.1); Protein, Total 7.6 g/dL (6.0-8.3); Sodium 137 mmol/L (136-145)
[2022-04-18 12:26] LABS: Bacteria/HPF Rare-Few HPF (None Seen); Bilirubin Negative (Negative); Blood, Urine 1+ (Negative); Clarity Clear (Clear); Glucose, Urine (Dipstick) Normal (Negative); Ketone, Urine Negative (Negative); Leukocyte Negative Leu/uL (Negative); Nitrite Negative (Negative); Protein, Urine (Dipstick) Negative (Neg-Trace); RBC/HPF 0-3 HPF (0-3); Specific Gravity, Urine 1.013 (1.002-1.036); Squamous Epithelial 0-3 HPF (0-3); Urobilinogen Normal mg/dL (Less than 2); WBC/HPF 0-3 HPF (0-3); pH, Urine 5.5 (5.0-9.0)
== END 2022-04-18 13:32 | disposition home or self-care (01) ==
LOC: ERS 10:32
DX: R10.32 Left lower quadrant pain (principal); R11.2 Nausea with vomiting, unspecified
CPT/HCPCS: 80053; 81003; 81015; 83690; 84703; 85025; 96361; 96374; 96375; J1885; J2405

== ENCOUNTER 2023-05-20 15:19 | Emergency (ER) | payer OTHER ==
[2023-05-20 15:42] LABS: #Monocytes 0.6 thou/uL (0.11-0.59); #Neutrophils 10.1 thou/uL (1.40-6.50); %Basophils 0.2 % (0.0-1.0); %Eosinophils 0.1 % (0.0-10.0); %Lymphocytes 3.3 % (21.0-51.0); %Monocytes 5.3 % (0.0-10.0); %Neutrophils 90.8 % (42.0-75.0); Hematocrit 40.7 % (36.0-47.0); Mean Corpuscular HGB CONC 34.4 g/dL (32.0-36.0); Mean Corpuscular Hemoglobin 29.2 pg (27.0-31.0); Platelet Count 273 10x3/uL (130-400); RBC Distribution Width 12.4 % (11.5-14.5); Red Blood Cell (RBC) Count 4.79 mill/uL (4.20-5.40); White Blood Cell (WBC) Count 11.1 10x3/uL (4.8-10.8)
[2023-05-20 15:50] LABS: BHCG - Serum Negative (NEGATIVE); Pregs Control Background? CLEAR/WHITE (CLR/WHITE); Pregs Control Bar Appear? YES (CONTROL BAR)
[2023-05-20 16:08] LABS: ALT (SGPT) 22 U/L (8-55); AST (SGOT) 18 U/L (5-34); Albumin 4.2 g/dL (3.5-5.0); Alkaline Phosphatase 95 U/L (40-110); Anion Gap 15 mmol/L (10-20); BUN (Urea Nitrogen) 8 mg/dL (7.0-18.7); Bilirubin, Total 0.5 mg/dL (0.2-1.2); Calc. Creatinine Clearance 0 mL/min (70-130); Calcium 9.4 mg/dL (7.8-10.44); Carbon Dioxide 21 mmol/L (22-29); Chloride 102 mmol/L (98-107); Estimated GFR 88; Globulin 3.7 g/dL (2.4-3.5); Glucose 122 mg/dL (70-105); Protein, Total 7.9 g/dL (6.0-8.3); Sodium 134 mmol/L (136-145)
[2023-05-20] MEDS ORDERED: Ketorolac Tromethamine 30 MG/ML VIAL ONE (16:16)
[2023-05-20] MEDS ORDERED: Acetaminophen 500 MG TAB ONE (16:16)
[2023-05-20] MEDS ORDERED: Ondansetron PF 4 MG/2 ML Vial ONE (16:19)
[2023-05-20 16:49] LABS: SARS-CoV-2 NAA Rapid Test DETECTED (NotDetected)
[2023-05-20 17:12] LABS: Troponin I Less than 0.010 ng/mL (< 0.028)
[2023-05-20 18:17] LABS: Bacteria/HPF None Seen HPF (None Seen); Bilirubin Negative (Negative); Blood, Urine 1+ (Negative); CAUTI Indications for Culture Pelvic or flank pain; Clarity Clear (Clear); Glucose, Urine (Dipstick) Normal (Negative); Ketone, Urine Negative (Negative); Leukocyte Negative Leu/uL (Negative); Nitrite Negative (Negative); Protein, Urine (Dipstick) Negative (Neg-Trace); RBC/HPF 0-3 HPF (0-3); Specific Gravity, Urine 1.014 (1.002-1.036); Squamous Epithelial 0-3 HPF (0-3); Urobilinogen Normal mg/dL (Less than 2); WBC/HPF 0-3 HPF (0-3); pH, Urine 7.5 (5.0-9.0)
[2023-05-20 18:22] LABS: Urine Culture Reflex No No
== END 2023-05-20 18:50 | disposition home or self-care (01) ==
LOC: ERS 15:19
DX: U07.1 COVID-19 (principal); M79.10 Myalgia, unspecified site; Z20.822 Contact with and (suspected) exposure to COVID-19
CPT/HCPCS: 36415; 71045; 80053; 81001; 84484; 84703; 85025; 85379; 87040; 87086; 93005; 96361; 96374; 96375; J1885; J2405

== ENCOUNTER 2023-11-04 11:14 | Outpatient (CLI) | payer OTHER | END 2023-11-04 11:15 | disposition home or self-care (01) | LOC: BICRAD 11:14 | PROVIDERS: ATTEND Family Medicine | DX: M79.641 Pain in right hand (principal); M79.642 Pain in left hand ==

== ENCOUNTER 2024-08-01 14:45 | Emergency (ER) | payer SELFPAY ==
[2024-08-01] MEDS ORDERED: Ketorolac Tromethamine 30 MG (1 mL) VIAL ONE (17:07)
== END 2024-08-01 18:53 | disposition home or self-care (01) ==
LOC: ERS 14:45
DX: M54.50 Low back pain, unspecified (principal); I10 Essential (primary) hypertension; W10.9XXA Fall (on) (from) unspecified stairs and steps, initial encounter
CPT/HCPCS: 72100; 96372; 99283; J1885

== ENCOUNTER 2024-08-26 06:25 | Emergency (ER) | payer SELFPAY ==
[2024-08-26] MEDS ORDERED: Lidocaine 4% Patch ONE ×2 (06:55→07:11)
[2024-08-26] MEDS ORDERED: HYDROcodone/Acetaminophen 5/325 mg Tablet ONE (06:55)
[2024-08-26 07:27] LABS: BHCG - Serum Negative (NEGATIVE); Pregs Control Background? CLEAR/WHITE (CLR/WHITE); Pregs Control Bar Appear? YES (CONTROL BAR)
[2024-08-26] MEDS ORDERED: Cyclobenzaprine 10 MG TAB ONE (08:20)
[2024-08-26] MEDS ORDERED: Ketorolac Tromethamine 30 MG (1 mL) VIAL ONE (08:20)
== END 2024-08-26 09:11 | disposition home or self-care (01) ==
LOC: ERS 06:25
DX: M54.50 Low back pain, unspecified (principal); G89.29 Other chronic pain; I10 Essential (primary) hypertension; W18.30XA Fall on same level, unspecified, initial encounter
CPT/HCPCS: 36415; 72125; 72128; 72131; 84703; 96372; J1885

== ENCOUNTER 2025-09-18 05:25 | Emergency (ER) | payer SELFPAY ==
[2025-09-18] MEDS ORDERED: HYDROcodone/Acetaminophen 5/325 mg Tablet ONE (06:26)
[2025-09-18] MEDS ORDERED: Ketorolac Tromethamine 30 MG (1 mL) VIAL ONE (06:26)
== END 2025-09-18 07:16 | disposition home or self-care (01) ==
LOC: ERS 05:25
DX: M54.50 Low back pain, unspecified (principal); G89.29 Other chronic pain; I10 Essential (primary) hypertension
CPT/HCPCS: 96372; 99283; J1885